=== PATIENT | male | born 1980 | race Caucasian/White ===

== ENCOUNTER 2025-03-16 20:58 | Observation (INO) | payer OTHER, SELFPAY ==
[2025-03-16] VITALS (7 sets, daily range): BP systolic 165–202; BP diastolic 90–137; PULSE 102–117; RESP 18–27; TEMP 36.6; O2SAT 91–97; BMI 52.2
[2025-03-16 21:58] LABS: Bacteria Urine Many (>30); Culture Indicated Urine Specimen Cultured; RBC Urine 10-30/HPF (0-5/HPF); Squamous Epithelial Cell Urine 0-1 /HPF (0-5/HPF); Urine Volume 10mL (spun); WBC Urine 30-100/HPF (0-5/HPF)
--- NOTE | 2025-03-16 22:29 | ED_ITS ---
HPI - Back Pain/Injury General Chief Complaint: Back Pain/Injury Stated Complaint: right side lower back pain Time Seen by Provider: 03/16/25 21:27 Source: patient History of Present Illness HPI Narrative: 44-year-old gentleman presents with back pain that wraps around to the right side along with nausea started earlier today. Patient reports having nail size poop today 3 times and also having a chronic nonproductive cough for few weeks now. Patient denies urinary symptoms, fever, chills, chest pain, shortness of breath, dyspnea on exertion, leg pain, leg swelling. Other than what is stated 14 point review of system is negative Related Data Allergies Allergy/AdvReac Type Severity Reaction Status Date / Time No Known Drug Allergies Allergy Verified 03/16/25 21:06 Review of Systems Review of Systems ROS Unobtainable: All systems reviewed & are unremarkable except as noted in HPI and below Patient History Social History Smoking Status: Former smoker Smoking Status: Former smoker Exam Narrative Exam Narrative: GENERAL: [44] year old patient appears stated age. Well-developed patient, in mild distress. HEAD: Atraumatic. Normocephalic. EYES: Pupils equal round and reactive. Extraocular motions intact. No scleral icterus. No injection or drainage. ENT: Nose without bleeding, purulent drainage. Throat without erythema, tonsillar hypertrophy or exudate. Airway patent. NECK: Trachea midline. Non tender CARDIOVASCULAR: Regular rate and rhythm without murmurs, gallops, or rubs. RESPIRATORY: Clear to auscultation. Breath sounds equal bilaterally. No wheezes, rales, or rhonchi. GASTROINTESTINAL: Abdomen soft, non-tender, nondistended. EXTREMITIES: No edema or joint tenderness. BACK: Nontender without deformity or crepitance. No flank tenderness. NEURO: AOx3. SKIN: No rash or erythema of visible areas Initial Vital Signs Initial Vital Signs: Vital Signs Temperature 97.9 F 03/16/25 21:06 Pulse Rate 115 H 03/16/25 21:06 Respiratory Rate 18 03/16/25 21:06 Blood Pressure 185/125 H 03/16/25 21:06 Pulse Oximetry 96 03/16/25 21:06 Oxygen Delivery Method Room Air 03/16/25 21:06 Course Orders Ordered: ED Orders 03/16/25 21:35 Urine Culture Stat Urine Microscopic Stat 03/16/25 22:31 Complete Blood Count AUTO DIFF Stat Comprehensive Metabolic Panel Stat Lactate (Lactic Acid) Stat Lipase Stat Procalcitonin Stat 03/16/25 22:36 CT abdomen pelvis w con Stat 03/16/25 22:49 Urine Microscopic Stat 03/16/25 23:25 Blood Culture Stat Discontinued Medications Sodium Chloride (Normal Saline 0.9%) 1,000 mls @ 1,000 mls/hr IV BOLUS ONE Stop: 03/16/25 23:34 Last Admin: 03/16/25 22:44 Dose: 1,000 mls/hr Documented By: KENNEDI Ceftriaxone Sodium 2,000 mg/ (Sodium Chloride) 100 mls @ 200 mls/hr IV NOW ONE Stop: 03/16/25 23:11 Last Admin: 03/16/25 23:33 Dose: 200 mls/hr Documented By: KENNEDI Ketorolac Tromethamine (Ketorolac 30 Mg/Ml Vial) 30 mg IV NOW ONE Stop: 03/16/25 22:36 Last Admin: 03/16/25 22:44 Dose: 30 mg Documented By: KENNEDI Ondansetron HCl (Ondansetron 4 Mg/2 Ml Inj) 4 mg IV NOW ONE Stop: 03/16/25 22:36 Last Admin: 03/16/25 22:45 Dose: 4 mg Documented By: KENNEDI Vital Signs Vital signs: Vital Signs - 8 hr 03/16/25 21:06 03/16/25 22:14 03/16/25 22:14 Temperature 97.9 F Pulse Rate 115 H 117 H Respiratory Rate 18 26 H Blood Pressure 185/125 H 202/137 H Pulse Oximetry 96 93 Oxygen Delivery Method Room Air Room Air 03/16/25 22:30 03/16/25 22:47 03/16/25 22:47 Temperature Pulse Rate 110 H 108 H Respiratory Rate 26 H 26 H Blood Pressure 199/114 H Pulse Oximetry 94 97 Oxygen Delivery Method Room Air Room Air 03/16/25 23:00 03/16/25 23:25 03/16/25 23:25 Temperature Pulse Rate 105 H 107 H Respiratory Rate 26 H 27 H Blood Pressure 172/98 H Pulse Oximetry 91 93 Oxygen Delivery Method Room Air Room Air 03/16/25 23:30 03/16/25 23:30 Temperature Pulse Rate 102 H Respiratory Rate 24 Blood Pressure 165/90 H Pulse Oximetry 93 Oxygen Delivery Method Room Air MDM - Back Pain/Injury Lab Data 03/16/25 22:31 03/16/25 22:31 Labs: Lab Results 03/16/25 03/16/25 Range/Units 21:35 22:31 WBC 17.2 H (4.5-11.0) X10^3/uL RBC 4.57 (4.5-5.9) X10^6/uL Hgb 13.1 L (13.5-17.5) g/dL Hct 38.6 L (41-53) % MCV 84.5 (80-100) fL MCH 28.6 (26-34) PG MCHC 33.8 (30-36) % RDW 16.9 H (11.6-14.8) % Plt Count 326 (150-400) X10^3/uL Neut % (Auto) 80.4 H (50-75) % Lymph % (Auto) 10.2 L (25-40) % [place] % (Auto) 7.8 (3-14) % Eos % (Auto) 0.3 L (2-4) % Baso % (Auto) 1.3 (0-2) % Neut # (Auto) 09600 H (2428-0780) /uL Lymph # (Auto) 1800 (3944-7479) /uL [place] # (Auto) 1300 H (0-900) /uL Eos # (Auto) 100 (0-450) /uL Baso # (Auto) 200 H (0-100) /uL Sodium 134 L (137-145) mmol/L Potassium 3.8 (3.4-5.1) mmol/L Chloride 99 (98-107) mmol/L Carbon Dioxide 25 (22-32) mmol/L BUN 12 (9-20) mg/dL Creatinine 0.93 (0.66-1.25) mg/dL Estimated GFR > 60 (>60) mL/min BUN/Creatinine Ratio 12.9 (6-22) Glucose 119 H (70-99) mg/dL Lactate 1.3 (0.7-2.1) mmol/L Calcium 8.9 (8.4-10.2) mg/dL Total Bilirubin 2.3 H (0.2-1.3) mg/dL AST 28 (17-59) IU/L ALT 21 (<50) IU/L Alkaline Phosphatase 82 (38-126) U/L Total Protein 7.4 (6.3-8.2) g/dL Albumin 4.1 (3.5-5.0) g/dL Globulin 3.3 (1.7-4.1) g/dL Albumin/Globulin Ratio 1.2 (1.0-2.8) Lipase 62 (23-300) U/L Urine RBC 10-30/hpf H (0-5/HPF) Urine WBC 30-100/hpf H (0-5/HPF) Ur Squamous Epith Cells 0-1 /hpf (0-5/HPF) Urine Bacteria Many (>30) H (None) Ur Culture Indicated? Specimen cultured Vol Urine Centrifuged 10ml (spun) Urine Dip Bedside Urine Glucose Negative Bedside Urine Bilirubin - Negative Bedside Urine Ketone - Negative Urine Specific [place] 1.015 Bedside Urine Occult Blood +++ Bedside Urine pH 6.0 Bedside Urine Protein ++ 100 Bedside Urine Urobilinogen - Negative Bedside Urine Nitrite - Negative Bedside Urine Leukocytes +++ [address] scan - abdomen/pelvis: Radiologist's Impression: [place] [address] CT Scan Report Signed Patient: Yohan Durand MR#: [id number] : 1980 Acct:[id number] Age/Sex: 44 / M Date of Service: 03/16/25 Loc: ED Accession Number: [id number] Procedure: CT abdomen pelvis w con Ordering Provider: Royal Rodas D.O. PROCEDURE: CT ABDOMEN PELVIS W CON INDICATIONS: Rt flank pain, back pain TECHNIQUE: After the administration of intravenous contrast, axial sections acquired from the lung bases to the pubic symphysis. Coronal and sagittal reformats were performed. For radiation dose reduction, the following was used: automated exposure control, adjustment of mA and/or kV according to patient size. COMPARISON: None. FINDINGS: Image quality: Diagnostic. Lower Chest: 1.1 cm right lower lobe ground-glass nodule series 5, image 19. No priors. ABDOMEN: Liver: No solid mass. Steatosis. Gallbladder: No radiopaque gallstones or wall thickening. Biliary ducts: No biliary dilation. Pancreas: No ductal dilation. Spleen: Size is within normal limits. Adrenal Glands: No adrenal nodules. Kidneys and Ureters: No hydronephrosis. There is mild appearance right perinephric and periureteral stranding. There are patchy areas of decreased contrast enhancement within the right renal parenchyma. Stomach and Bowel: Normal colonic caliber, without significant wall thickening. Peritoneum: No abnormal intraperitoneal fluid. No free air. Ventral Wall: No significant ventral hernia. Abdominal Nodes: No retroperitoneal or mesenteric adenopathy by size criteria. Vessels: Aorta and inferior vena cava are normal in size. PELVIS: Pelvic Organs: Unremarkable. Bladder: No bladder wall thickening, accounting for underdistention. Pelvic Nodes: No enlarged lymph nodes. Miscellaneous: Bilateral fat containing inguinal hernias are seen. Bones: No aggressive osseous abnormality. IMPRESSION: Right perinephric and periureteral stranding with areas of patchy decreased renal parenchymal enhancement. Overall appearance is suggestive of infection/inflammation such as pyelonephritis. MDM Narrative Medical decision making narrative: All lab work, vital signs, nurse triage note, medication list, previous ER visits, and all imaging studies reviewed. CT scan showed right perinephric and periureteral stranding with areas of patchy decreased renal parenchymal enhancement overall appearance is suggestive of infection inflammation such as pyelonephritis. Patient had blood cultures and lactic acid obtained along with 2 g of Rocephin given IV along with normal saline 1 L bolus [place]ad[place] [address] with left shift total bilirubin 2.3 urine shows 10-30 RBC 30-100 WBC many bacteria. Differential diagnosis includes sepsis UTI pyelonephritis kidney stone. Case discussed with who has graciously accepted the patient for inpatient admission. Discharge Plan Departure Patient Disposition: Admitted As Inpatient Clinical Impression: Pyelonephritis Admit Date/Time: 03/17/25 00:10 Admit Provider: Arias Hauser
--- NOTE | 2025-03-16 22:36 | DI.CT.S_ITS ---
PROCEDURE: CT ABDOMEN PELVIS W CON INDICATIONS: Rt flank pain, back pain TECHNIQUE: After the administration of intravenous contrast, axial sections acquired from the lung bases to the pubic symphysis. Coronal and sagittal reformats were performed. For radiation dose reduction, the following was used: automated exposure control, adjustment of mA and/or kV according to patient size. COMPARISON: None. FINDINGS: Image quality: Diagnostic. Lower Chest: 1.1 cm right lower lobe ground-glass nodule series 5, image 19. No priors. ABDOMEN: Liver: No solid mass. Steatosis. Gallbladder: No radiopaque gallstones or wall thickening. Biliary ducts: No biliary dilation. Pancreas: No ductal dilation. Spleen: Size is within normal limits. Adrenal Glands: No adrenal nodules. Kidneys and Ureters: No hydronephrosis. There is mild appearance right perinephric and periureteral stranding. There are patchy areas of decreased contrast enhancement within the right renal parenchyma. Stomach and Bowel: Normal colonic caliber, without significant wall thickening. Peritoneum: No abnormal intraperitoneal fluid. No free air. Ventral Wall: No significant ventral hernia. Abdominal Nodes: No retroperitoneal or mesenteric adenopathy by size criteria. Vessels: Aorta and inferior vena cava are normal in size. PELVIS: Pelvic Organs: Unremarkable. Bladder: No bladder wall thickening, accounting for underdistention. Pelvic Nodes: No enlarged lymph nodes. Miscellaneous: Bilateral fat containing inguinal hernias are seen. Bones: No aggressive osseous abnormality. IMPRESSION: Right perinephric and periureteral stranding with areas of patchy decreased renal parenchymal enhancement. Overall appearance is suggestive of infection/inflammation such as pyelonephritis. Dictated by: Elizabeth Lackey M.D. on 03/16/2025 at 23:21 Approved by: Elizabeth Lackey M.D. on 03/16/2025 at 23:22
[2025-03-16] MEDS: KETOROLAC 30 MG/ML VIAL IV (22:44)
[2025-03-16] MEDS: SODIUM CHLORIDE 0.9% 1,000 ML 1000 ML IV (22:44)
[2025-03-16] MEDS: ONDANSETRON 4 MG/2 ML INJ IV (22:45)
[2025-03-16 22:49] LABS: Add Manual Diff / Slide Review NO; Basophils Absolute Auto 200 /uL (0-100); Basophils Percent Auto 1.3 % (0-2); Eosinophils Absolute Auto 100 /uL (0-450); Eosinophils Percent Auto 0.3 % (2-4); Hematocrit 38.6 % (41-53); Hemoglobin 13.1 g/dL (13.5-17.5); Lymphocytes Absolute Auto 1800 /uL (1100-4500); Lymphocytes Percent Auto 10.2 % (25-40); Mean Corpuscular HGB Conc 33.8 % (30-36); Mean Corpuscular Hemoglobin 28.6 PG (26-34); Mean Corpuscular Volume 84.5 fL (80-100); Monocytes Absolute Auto 1300 /uL (0-900); Monocytes Percent Auto 7.8 % (3-14); Neutrophils Absolute Auto 13800 /uL (1500-7000); Neutrophils Percent Auto 80.4 % (50-75); Platelet Count 326 X10^3/uL (150-400); Red Blood Cell Count 4.57 X10^6/uL (4.5-5.9); Red Cell Distribution Width 16.9 % (11.6-14.8); White Blood Cell Count 17.2 X10^3/uL (4.5-11.0)
--- NOTE | 2025-03-16 23:03 | PC.NURSE ---
Pt to imaging via ED stretcher with echo tech
[2025-03-16 23:07] LABS: Alanine Aminotransferase 21 IU/L (<50); Albumin 4.1 g/dL (3.5-5.0); Albumin Globulin Ratio 1.2 (1.0-2.8); Alkaline Phosphatase 82 U/L (38-126); Aspartate Aminotransferase 28 IU/L (17-59); BUN Creatinine Ratio 12.9 (6-22); Bilirubin Total 2.3 mg/dL (0.2-1.3); Blood Urea Nitrogen 12 mg/dL (9-20); Calcium 8.9 mg/dL (8.4-10.2); Carbon Dioxide 25 mmol/L (22-32); Chloride 99 mmol/L (98-107); Estimated Glomerular Filt Rate > 60 mL/min (>60); Globulin 3.3 g/dL (1.7-4.1); Glucose 119 mg/dL (70-99); HEMOLYSIS 23 (0-50); Lipase 62 U/L (23-300); Potassium 3.8 mmol/L (3.4-5.1); Sodium 134 mmol/L (137-145); Total Protein 7.4 g/dL (6.3-8.2)
[2025-03-16] MEDS: cefTRIAXone 2,000 MG in SODIUM CHLORIDE 0.9% 100 ML 200 MG IV (23:33)
[2025-03-16 23:36] LABS: Lactate (Lactic Acid) 1.3 mmol/L (0.7-2.1)
[2025-03-16 23:48] LABS: Procalcitonin 0.076 ng/mL (<0.5)
[2025-03-17] MEDS: SODIUM CHLORIDE 0.9% 1,000 ML 100 ML IV (01:15)
[2025-03-17 01:21] VITALS: BP 153/109; PULSE 100; RESP 20; TEMP 36.2; O2SAT 96
[2025-03-17] MEDS: ACETAMINOPHEN 325 MG TABLET 650 MG PO (01:21)
[2025-03-17 01:23] VITALS: BMI 51.7
--- NOTE | 2025-03-17 02:18 | P.HP_ITS ---
History of Present Illness History of Present Illness Date Patient Seen: 03/16/25 Time Patient Seen: 23:40 Chief complaint: right side lower back pain Narrative: 44-year-old male with past medical history of hypertension on hydrochlorothiazide presents with right-sided back pain. Per the patient's report, the patient started to have severe constipation over the last few days. The patient states that he only had very small amount of stools with the last bowel movement he had. The patient noticed to have some right sided flank pain that started and worsens today. The patient however denies any fever, chills, nausea, vomiting, diarrhea, dysuria, chest palpitation or shortness of breath. The patient does have a chronic, nonproductive cough for a few weeks now. In our emergency room, the patient was hemodynamically stable. Labs shows a WBC of 17,000 with normal lactate at 1.3. UA is positive for UTI. CT scan of the abdomen pelvic shows signs of pyelonephritis. The patient was given pain medication along with 2 g of Rocephin and IV fluid bolus. PFSH Social History household members: spouse Smoking Status: Former smoker Meds Home Medications and Allergies Home Medications ?Medication ?Instructions ?Recorded ?Confirmed ?Type hydrochlorothiazide 12.5 mg tablet 12.5 mg PO QAM 02/1803/17/25 History Allergies Allergy/AdvReac Type Severity Reaction Status Date / Time No Known Drug Allergies Allergy Verified 03/16/25 21:06 Review of Systems Review of Systems ROS: Yes All systems reviewed with the patient and are negative except as otherwise documented Exam Vital Signs (past 8 hours): - 03/16/25 21:06 03/16/25 22:14 03/16/25 22:14 Temperature 97.9 F Pulse Rate 115 H 117 H Respiratory Rate 18 26 H Blood Pressure 185/125 H 202/137 H Pulse Oximetry 96 93 Oxygen Delivery Method Room Air Room Air Oxygen Flow Rate 03/16/25 22:30 03/16/25 22:47 03/16/25 22:47 Temperature Pulse Rate 110 H 108 H Respiratory Rate 26 H 26 H Blood Pressure 199/114 H Pulse Oximetry 94 97 Oxygen Delivery Method Room Air Room Air Oxygen Flow Rate 03/16/25 23:00 03/16/25 23:25 03/16/25 23:25 Temperature Pulse Rate 105 H 107 H Respiratory Rate 26 H 27 H Blood Pressure 172/98 H Pulse Oximetry 91 93 Oxygen Delivery Method Room Air Room Air Oxygen Flow Rate 03/16/25 23:30 03/16/25 23:30 03/17/25 01:21 Temperature 97.1 F L Pulse Rate 102 H 100 H Respiratory Rate 24 20 Blood Pressure 165/90 H 153/109 H Pulse Oximetry 93 96 Oxygen Delivery Method Room Air Oxygen Flow Rate 0 03/17/25 01:25 Temperature Pulse Rate Respiratory Rate Blood Pressure Pulse Oximetry Oxygen Delivery Method Room Air Oxygen Flow Rate Oxygen Delivery Method Room Air Oxygen Flow Rate 0 Narrative Exam Narrative: Physical Exam: GENERAL: The patient is not in any acute distressed. Awake and alert. HEENT: Nonicteric sclerae, PERRLA, EOMI. Oropharynx clear. Moist mucous membranes. Conjunctivae appear well perfused. HEART: Regular rate and rhythm without murmurs. No lower extremities edema. LUNGS: Clear to auscultation bilaterally. No wheezing, crackles or rhonchi ABDOMEN: Soft, positive bowel sounds, nontender. SKIN: No rash, no excessive bruising, petechiae, or purpura. NEUROLOGIC: AxO x 3. Cranial nerves II-XII intact without motor/sensory deficit. Objective Labs 03/16/25 22:31 03/16/25 22:31 Labs: Laboratory Results - last 24 hr 03/16/25 03/16/25 21:35 22:31 WBC 17.2 H RBC 4.57 Hgb 13.1 L Hct 38.6 L MCV 84.5 MCH 28.6 MCHC 33.8 RDW 16.9 H Plt Count 326 Neut % (Auto) 80.4 H Lymph % (Auto) 10.2 L [place] % (Auto) 7.8 Eos % (Auto) 0.3 L Baso % (Auto) 1.3 Neut # (Auto) 22976 H Lymph # (Auto) 1800 [place] # (Auto) 1300 H Eos # (Auto) 100 Baso # (Auto) 200 H Sodium 134 L Potassium 3.8 Chloride 99 Carbon Dioxide 25 BUN 12 Creatinine 0.93 Estimated GFR > 60 BUN/Creatinine Ratio 12.9 Glucose 119 H Lactate 1.3 Calcium 8.9 Total Bilirubin 2.3 H AST 28 ALT 21 Alkaline Phosphatase 82 Total Protein 7.4 Albumin 4.1 Globulin 3.3 Albumin/Globulin Ratio 1.2 Lipase 62 Procalcitonin 0.076 Urine RBC 10-30/hpf H Urine WBC 30-100/hpf H Ur Squamous Epith Cells 0-1 /hpf Urine Bacteria Many (>30) H Ur Culture Indicated? Specimen cultured Vol Urine Centrifuged 10ml (spun) Assessment & Plan Assessment & Plan narrative: Right-sided pyelonephritis. Admit the patient to medical inpatient. Of note the patient not septic at this time. No stone seen on CT scan. Continue IV ceftriaxone, IV fluid, pain control and follow-up urine culture. Hypertension. Monitor blood pressure and treat accordingly. DVT prophylaxis SCDs. CODE STATUS full code. Disposition likely home in 2 days - As the provider of this telehealth evaluation, requested by the patient's evaluating physician, I attest that I introduced myself to the patient, provided my credentials and determined that telemedicine via a real-time, 2 way interactive audio and video platform is an appropriate and effective means of providing this service. - I reviewed the patient's chart and had a discussion with the member of the patient's treatment team. - The patient and I mutually agreed with continuation of this evaluation via telemedicine. The patient consented for the telemedicine evaluation. - This virtual encounter was taken place from [place] by Dr. Salomón Olivas. The patient was evaluated at [facility]. The encounter was approximately 35 minutes. The nurse was present during the entire time of the encounter and was able to move the stethoscope in appropriate directions. Time-Based Coding :: [TOTAL MINUTES] spent with patient and on the chart (including review of chart, obtaining history, exam, reviewing outside data, placing orders, documenting exam and treatment plan, and counseling patient) on [DATE].
[2025-03-17 02:30] VITALS: O2SAT 91
[2025-03-17 05:14] LABS: Add Manual Diff / Slide Review NO; Basophils Absolute Auto 100 /uL (0-100); Basophils Percent Auto 0.5 % (0-2); Eosinophils Absolute Auto 100 /uL (0-450); Eosinophils Percent Auto 0.9 % (2-4); Hematocrit 37.1 % (41-53); Hemoglobin 12.4 g/dL (13.5-17.5); Lymphocytes Absolute Auto 1600 /uL (1100-4500); Lymphocytes Percent Auto 12.1 % (25-40); Mean Corpuscular HGB Conc 33.4 % (30-36); Mean Corpuscular Hemoglobin 28.4 PG (26-34); Mean Corpuscular Volume 85.2 fL (80-100); Monocytes Absolute Auto 1400 /uL (0-900); Monocytes Percent Auto 10.9 % (3-14); Neutrophils Absolute Auto 9800 /uL (1500-7000); Neutrophils Percent Auto 75.6 % (50-75); Platelet Count 265 X10^3/uL (150-400); Red Blood Cell Count 4.35 X10^6/uL (4.5-5.9); Red Cell Distribution Width 16.7 % (11.6-14.8); White Blood Cell Count 12.9 X10^3/uL (4.5-11.0)
[2025-03-17 05:29] LABS: Alanine Aminotransferase 16 IU/L (<50); Albumin 3.4 g/dL (3.5-5.0); Albumin Globulin Ratio 1.2 (1.0-2.8); Alkaline Phosphatase 70 U/L (38-126); Aspartate Aminotransferase 19 IU/L (17-59); BUN Creatinine Ratio 14.6 (6-22); Bilirubin Total 1.7 mg/dL (0.2-1.3); Blood Urea Nitrogen 12 mg/dL (9-20); Calcium 8.3 mg/dL (8.4-10.2); Carbon Dioxide 25 mmol/L (22-32); Chloride 103 mmol/L (98-107); Estimated Glomerular Filt Rate > 60 mL/min (>60); Globulin 2.9 g/dL (1.7-4.1); Glucose 105 mg/dL (70-99); HEMOLYSIS < 15 (0-50); Potassium 3.4 mmol/L (3.4-5.1); Sodium 135 mmol/L (137-145); Total Protein 6.3 g/dL (6.3-8.2)
--- NOTE | 2025-03-17 07:45 | P.HP_ITS ---
History of Present Illness History of Present Illness Chief complaint: right side lower back pain Narrative: From night doctor: 44-year-old male with past medical history of hypertension on hydrochlorothiazide presents with right-sided back pain. Per the patient's report, the patient started to have severe constipation over the last few days. The patient states that he only had very small amount of stools with the last bowel movement he had. The patient noticed to have some right sided flank pain that started and worsens today. The patient however denies any fever, chills, nausea, vomiting, diarrhea, dysuria, chest palpitation or shortness of breath. The patient does have a chronic, nonproductive cough for a few weeks now. In our emergency room, the patient was hemodynamically stable. Labs shows a WBC of 17,000 with normal lactate at 1.3. UA is positive for UTI. CT scan of the abdomen pelvic shows signs of pyelonephritis. The patient was given pain medication along with 2 g of Rocephin and IV fluid bolus. S: He has improved substantially since arrival. His flank pain is nearly resolved and he was no nausea or vomiting. He also denies fevers, chills, or rigors. [facility] Social History household members: spouse Smoking Status: Former smoker Meds Home Medications and Allergies Home Medications ?Medication ?Instructions ?Recorded ?Confirmed ?Type ciprofloxacin HCl 500 mg tablet 500 mg PO BID #14 tabs 03/17/25 Rx (Cipro) hydrochlorothiazide 12.5 mg tablet 12.5 mg PO QAM 02/1803/17/25 History ibuprofen 400 mg tablet 400 mg PO Q8H PRN severe moody n #20 03/17/25 Rx tabs Allergies Allergy/AdvReac Type Severity Reaction Status Date / Time No Known Drug Allergies Allergy Verified 03/16/25 21:06 Review of Systems Review of Systems Narrative: All else reviewed and otherwise unremarkable except as noted in the history and physical. Exam Vital Signs (past 8 hours): - 03/17/25 01:21 03/17/25 01:25 03/17/25 02:29 Temperature 97.1 F L Pulse Rate 100 H Respiratory Rate 20 Blood Pressure 153/109 H Pulse Oximetry 96 Oxygen Delivery Method Room Air Oxygen Flow Rate 0 2 03/17/25 02:30 Temperature Pulse Rate Respiratory Rate Blood Pressure Pulse Oximetry 91 Oxygen Delivery Method Oxygen Flow Rate 2 Oxygen Delivery Method Room Air Oxygen Flow Rate 2 Narrative Exam Narrative: NAD, alert and oriented, fluent speech, calm. Normocephalic skull, EOMI, anicteric sclera, symmetric pupils. Oropharynx unremarkable, no droop. Neck supple, midline trachea, no adenopathy. Lungs clear, normal rate and effort. Heart regular, no murmur gallop or rub. Abdomen is soft, non distended and non tender. Extremities are free of edema. Skin is free of rash or lesions. Joints are not swollen or deformed. Judgment appears to be normal. No CVAT. Objective Imaging CT scan - abdomen: Radiologist's impression: Right perinephric and periureteral stranding with areas of patchy decreased renal parenchymal enhancement. Overall appearance is suggestive of infection/inflammation such as pyelonephritis. Labs 03/17/25 04:40 03/17/25 04:40 Labs: Laboratory Results - last 24 hr 03/16/25 03/16/25 03/17/25 21:35 22:31 04:40 WBC 17.2 H 12.9 H RBC 4.57 4.35 L Hgb 13.1 L 12.4 L Hct 38.6 L 37.1 L MCV 84.5 85.2 MCH 28.6 28.4 MCHC 33.8 33.4 RDW 16.9 H 16.7 H Plt Count 326 265 Neut % (Auto) 80.4 H 75.6 H Lymph % (Auto) 10.2 L 12.1 L [place] % (Auto) 7.8 10.9 Eos % (Auto) 0.3 L 0.9 L Baso % (Auto) 1.3 0.5 Neut # (Auto) 87734 H 9800 H Lymph # (Auto) 1800 1600 [place] # (Auto) 1300 H 1400 H Eos # (Auto) 100 100 Baso # (Auto) 200 H 100 Sodium 134 L 135 L Potassium 3.8 3.4 Chloride 99 103 Carbon Dioxide 25 25 BUN 12 12 Creatinine 0.93 0.82 Estimated GFR > 60 > 60 BUN/Creatinine Ratio 12.9 14.6 Glucose 119 H 105 H Lactate 1.3 Calcium 8.9 8.3 L Total Bilirubin 2.3 H 1.7 H AST 28 19 ALT 21 16 Alkaline Phosphatase 82 70 Total Protein 7.4 6.3 Albumin 4.1 3.4 L Globulin 3.3 2.9 Albumin/Globulin Ratio 1.2 1.2 Lipase 62 Procalcitonin 0.076 Urine RBC 10-30/hpf H Urine WBC 30-100/hpf H Ur Squamous Epith Cells 0-1 /hpf Urine Bacteria Many (>30) H Ur Culture Indicated? Specimen cultured Vol Urine Centrifuged 10ml (spun) Assessment & Plan Assessment & Plan narrative: 1. Right-sided pyelonephritis. Present on admission and active. 2. Hypertension. Present on admission and stable. PLAN: -IV fluids and IV ceftriaxone. We will follow urine cultures. DVT prophylaxis SCDs. CODE STATUS full code. Disposition likely home in 2 days Time-Based Coding :: 35 min spent with patient and on the chart (including review of chart, obtaining history, exam, reviewing outside data, placing orders, documenting exam and treatment plan, and counseling patient) on 03/17. Quality MIPS - Admit I confirm the patient?s Advance Care Plan is present, Code status is documented, Surrogate decision maker is in patient?s record [If Yes, STOP here]: Yes MIPS - Meds 'Current medications' to include all prescriptions, [id number] products, herbals, cannabis/cannabidiol products, and vitamin/mineral/dietary (nutritional) supplements. I have utilized all available resources to obtain, update, or review the patient?s current medications. [If Yes, STOP here]: Yes
[2025-03-17 10:00] VITALS: BP 165/109; PULSE 109; RESP 20; TEMP 36.5; O2SAT 95
--- NOTE | 2025-03-17 10:45 | P.DS_ITS ---
History of Present Illness History of Present Illness Chief complaint: right side lower back pain Narrative: From night doctor: 44-year-old male with past medical history of hypertension on hydrochlorothiazide presents with right-sided back pain. Per the patient's report, the patient started to have severe constipation over the last few days. The patient states that he only had very small amount of stools with the last bowel movement he had. The patient noticed to have some right sided flank pain that started and worsens today. The patient however denies any fever, chills, nausea, vomiting, diarrhea, dysuria, chest palpitation or shortness of breath. The patient does have a chronic, nonproductive cough for a few weeks now. In our emergency room, the patient was hemodynamically stable. Labs shows a WBC of 17,000 with normal lactate at 1.3. UA is positive for UTI. CT scan of the abdomen pelvic shows signs of pyelonephritis. The patient was given pain medication along with 2 g of Rocephin and IV fluid bolus. S: He has improved substantially with near resolution of his flank pain. No fevers, chills, or nausea. He would like to return home with oral antibiotics if possible. Discharge Providers Provider Date of admission: 03/17/25 00:53 Discharge Date: 03/17/25 Consults: None. Discharge provider: Jae Durand MD Summary Hospital Course Discharge Diagnosis: 1. Right-sided pyelonephritis. Present on admission and improved. 2. Hypertension. Stable. Hospital Course: The patient was admitted to the hospital and treated with IV fluids and IV antibiotics, ceftriaxone. He initially had severe flank pain but this resolved. He had no fevers, or chills. He also had no nausea, or vomiting. When he was evaluated around noon on the day of discharge, he expressed a preference to return home and take oral antibiotics as well as Motrin. He was felt to be stable for discharge and on cultures will be followed. Status at Discharge Cognitive/behavioral status at discharge: oriented Functional status at discharge: independent ambulation Overall status at discharge: patient is back to baseline Time Spent with Patient Time spent: Greater than 30 minutes Exam Vital Signs (past 8 hours): - 03/17/25 10:00 Temperature 97.7 F Pulse Rate 109 H Respiratory Rate 20 Blood Pressure 165/109 H Pulse Oximetry 95 Oxygen Delivery Method Room Air Oxygen Flow Rate 2 Narrative Exam Narrative: NAD, alert and oriented. Fluent speech. Lungs are clear, normal rate and effort. Heart is regular, no murmur gallop or rub. Abdomen is soft, non distended. Extremities are free of edema. No CVAT. Objective Imaging CT scan - abdomen: Radiologist's impression: Right perinephric and periureteral stranding with areas of patchy decreased renal parenchymal enhancement. Overall appearance is suggestive of infection/inflammation such as pyelonephritis. Labs 03/17/25 04:40 03/17/25 04:40 Labs: Laboratory Results - last 24 hr 03/16/25 03/16/25 03/17/25 21:35 22:31 04:40 WBC 17.2 H 12.9 H RBC 4.57 4.35 L Hgb 13.1 L 12.4 L Hct 38.6 L 37.1 L MCV 84.5 85.2 MCH 28.6 28.4 MCHC 33.8 33.4 RDW 16.9 H 16.7 H Plt Count 326 265 Neut % (Auto) 80.4 H 75.6 H Lymph % (Auto) 10.2 L 12.1 L [place] % (Auto) 7.8 10.9 Eos % (Auto) 0.3 L 0.9 L Baso % (Auto) 1.3 0.5 Neut # (Auto) 56037 H 9800 H Lymph # (Auto) 1800 1600 [place] # (Auto) 1300 H 1400 H Eos # (Auto) 100 100 Baso # (Auto) 200 H 100 Sodium 134 L 135 L Potassium 3.8 3.4 Chloride 99 103 Carbon Dioxide 25 25 BUN 12 12 Creatinine 0.93 0.82 Estimated GFR > 60 > 60 BUN/Creatinine Ratio 12.9 14.6 Glucose 119 H 105 H Lactate 1.3 Calcium 8.9 8.3 L Total Bilirubin 2.3 H 1.7 H AST 28 19 ALT 21 16 Alkaline Phosphatase 82 70 Total Protein 7.4 6.3 Albumin 4.1 3.4 L Globulin 3.3 2.9 Albumin/Globulin Ratio 1.2 1.2 Lipase 62 Procalcitonin 0.076 Urine RBC 10-30/hpf H Urine WBC 30-100/hpf H Ur Squamous Epith Cells 0-1 /hpf Urine Bacteria Many (>30) H Ur Culture Indicated? Specimen cultured Vol Urine Centrifuged 10ml (spun) PFSH Social History household members: spouse Smoking Status: Former smoker Discharge Assessment & Plan Assessment and Plan Assessment: 1. Right pyelonephritis, improved. Plan of Treatment: We will discharge home on Cipro 500 b.i.d. for 7 days. We will follow urine cultures and contact him if there is any issues with sensitivity. Advised PCP follow up within a week. Discharge Plan Discharge Plan Patient Disposition: Home Provider Discharge Comment: Patient feels much better and wants to go home. He was stable for discharge on oral antibiotics. Discharge orders & Medications Prescriptions: New ciprofloxacin HCl [Cipro] 500 mg tablet 500 mg PO BID Qty: 14 0RF ibuprofen 400 mg tablet 400 mg PO Q8H PRN (Reason: severe pain) Qty: 20 0RF Continued hydrochlorothiazide 12.5 mg tablet 12.5 mg PO QAM Discharge Health Status Multidrug resistant organism: No MDRO Diet/Activity/Treatments Diet: Regular Activity: As tolerated. Visit Report/Discharge Packet Instructions: DI for Kidney Infection, DI for Prescription Opioid Use, Ciprofloxacin Stand Alone Forms: Patient Portal/API, Stroke Signs & Symptoms Discharge Data Attending Provider: Salomón Olivas Admit Date/Time: 03/17/25 00:53
--- NOTE | 2025-03-19 07:32 | P.EN_ITS ---
Event Note Date Patient Seen: 03/19/25 Time Patient Seen: 07:33 Event Note (Rapid Response, Code, or fall): Post Discharge phone followup. When I arrived for my 7:00 a.m. shift this morning there was a handwritten note on the door with reports of a blood culture positive for anaerobic Gram-positive cocci. This is likely in the family of peptostreptococcus. The patient was discharged home on Cipro. He will be changed to amoxicillin 500 mg t.i.d. for 7 more days. I called him at home. He said he is feeling better and that the back pain has not returned. He has not measured any fevers but he says that when the 12 hours of the Cipro wears off he begins feeling sweaty and warm again. I described for him that bacteremia frequently needs IV antibiotics for treatment and that if he does not continue improving, with a change in antibiotics, that he should return to the ED immedi ately for initiation of IV antibiotic treatment. It is still possible that this is a skin contaminant. The urine culture is showing very early growth and that will need to be rationalized with the blood culture results for a more complete picture.
== END 2025-03-17 12:02 | disposition home or self-care (01) ==
LOC: ED 21:27 → AC 03-17 00:11
PROVIDERS: Admitting Provider Internal Medicine; Emergency Provider Family Medicine; Referring Provider Family Medicine; Visit Provider Internal Medicine
DX: N12 Tubulo-interstitial nephritis, not specified as acute or chronic (principal); R11.0 Nausea; R05.9 Cough, unspecified; I10 Essential (primary) hypertension; K59.00 Constipation, unspecified; Z87.891 Personal history of nicotine dependence
CPT/HCPCS: 36415; 74177; 80053; 81003; 81015; 83605; 83690; 84145; 85025; 87040; 87077; 87086; 87147; 87186; 96361; 96365; 96375; 99284; G0378; J0696; J1885; J2405; Q9967